=== PATIENT | female | born 1965 | race American Indian/Alaskan Native ===

== ENCOUNTER 2016-10-06 14:59 | Inpatient (IN) | payer BC ==
[2016-10-06] MEDS ORDERED: Sodium Chloride 0.9% 1,000 ML IV STA ×3 (15:31→19:23)
--- NOTE | 2016-10-06 15:42 | ED PDOC ---
Syncope/Near Syncope/Dizziness <Sana Mims - Last Filed: 10/06/16 18:12> Chief Complaint (Provider): Dizziness/Lightheaded History Per: Patient History/Exam Limitations: no limitations Onset/Duration Of Symptoms: Hrs (since 11:00) Current Symptoms Are (Timing): Still Present Additional Complaint(s): Luis Eduardo Vanessa is a 51 year old female with previous medical history of hypertension and pre-diabetes, who presents to the emergency department with a complaint of dizziness associated with room spins, lightheadedness, nausea, epigastric pain, and near syncope ongoing since 11:00 this morning. Denies any further medical complaints. She reports that she did take her hypertension medications this morning (verapamil and hctz) Admitted to drinking almost 2 bottles of wine last night, being on a diet for pre diabetes, having low blood pressure with systolic 70 this morning, and taking Radha-seltzer with no relief of symptoms. PMD: None provided <Carmita Padilla - Last Filed: 10/08/16 14:29> Time Seen by Provider: 10/06/16 15:17 Chief Complaint (Nursing): Dizziness/Lightheaded Past Medical History Vital Signs: Last Vital Signs Temp 98.7 F 10/06/16 15:06 Pulse 58 L 10/06/16 16:35 Resp 56 H 10/06/16 17:10 BP 90/51 L 10/06/16 17:10 Pulse Ox 100 10/06/16 17:12 <Sana Mims - Last Filed: 10/06/16 18:12> Reviewed: Historical Data, Nursing Documentation, Vital Signs Vital Signs: Last Vital Signs Temp 98.7 F 10/06/16 15:06 Pulse 66 10/06/16 15:06 Resp 20 10/06/16 15:06 BP 72/52 L 10/06/16 15:06 Pulse Ox 100 10/06/16 15:06 - Medical History PMH: Diabetes (prediabetic), HTN - Surgical History Surgical History: - Family History Family History: States: Diabetes, Hypertension - Social History Current smoker - smoking cessation education provided: No Alcohol: Social Drugs: Denies <Carmita Padilla - Last Filed: 10/08/16 14:29> - Home Medications Home Medications: Ambulatory Orders Medication Instructions Recorded Biotin [Meribin] 5 mg PO DAILY 10/06/16 Calcium Carbonate/Vitamin D3 1 each PO DAILY 10/06/16 [Os-Rolando 500-Vit D3 200 Caplet] Chromium/Herbal Complex No.238 2 each PO DAILY 10/06/16 [Green Tea Caplet] Hydrochlorothiazide [Microzide] 25 mg PO BID 10/06/16 Psyllium Husk [Metamucil] 0.4 gm PO DAILY 10/06/16 Verapamil HCl [Verapamil ER] 240 ng PO DAILY 10/06/16 - Allergies Allergies/Adverse Reactions: Allergies Allergy/AdvReac Type Severity Reaction Status Date / Time No Known Allergies Allergy Verified 10/06/16 15:03 Review of Systems ROS Statement: Except As Marked, All Systems Reviewed And Found Negative Gastrointestinal: Positive for: Nausea, Abdominal Pain (epigastric) Neurological: Positive for: Dizziness (vertiginous dizziness and lightheadedness ), Other (near syncope) <Carmiat Padilla - Last Filed: 10/08/16 14:29> Physical Exam - Reviewed Nursing Documentation Reviewed: Yes Vital Signs Reviewed: Yes - Physical Exam Appears: Positive for: Well (with tired appearance), Non-toxic, No Acute Distress Head Exam: Positive for: ATRAUMATIC, NORMAL INSPECTION, NORMOCEPHALIC Skin: Positive for: Normal Color, Warm, Dry. Negative for: Rash Eye Exam: Positive for: Normal appearance, EOMI, PERRL. Negative for: Nystagmus ENT: Positive for: Pharynx Is (clear), Other (dry mucous membranes) Neck: Positive for: Normal, Painless ROM, Supple. Negative for: Decreased ROM Cardiovascular/Chest: Positive for: Regular Rate, Rhythm. Negative for: Murmur Respiratory: Positive for: Normal Breath Sounds. Negative for: Crackles, Rales , Rhonchi, Wheezing Gastrointestinal/Abdominal: Positive for: Normal Exam, Bowel Sounds, Soft. Negative for: Tenderness, Guarding, Rebound Back: Positive for: Normal Inspection. Negative for: L CVA Tenderness, R CVA Tenderness Extremity: Positive for: Normal ROM. Negative for: Tenderness, Pedal Edema, Deformity Lymphatic: Positive for: Normal Exam. Negative for: Adenopathy Neurologic/Psych: Positive for: Alert, plan coordinator II-XII (intact), Oriented (x3). Negative for: Motor/Sensory Deficits <Carmita Padilla - Last Filed: 10/08/16 14:29> - Laboratory Results Result Diagrams: 10/06/16 16:01 10/06/16 16:01 <Sana Mims - Last Filed: 10/06/16 18:12> - Laboratory Results Result Diagrams: 10/08/16 04:20 10/08/16 04:20 - ECG O2 Sat by Pulse Oximetry: 100 (RA) Pulse Ox Interpretation: Normal - Radiology X-Ray: Interpreted by Me X-Ray Interpretation: No Acute Disease - Critical Care Total Time (In Min): 45 Documented Critical Care: Time excludes all time spent performint seperately billable procedures <Carmita Padilla - Last Filed: 10/08/16 14:29> Medical Decision Making Medical Decision Making: Initial Impression: Dizziness; weakness Differential diagnosis: Dehydration, electrolyte abnormality, gastritis, vertigo , hyperglycemia Initial Plan: * Type and screen * EKG * Labs * Antivert 25mg PO * NS 1,000 ml IV per 1,000 mls/hr * Zofran 8mg IV * conveyor monitor * Glucose, blood, POC --Positive Antione-Hallpike test (increases symptoms, no nystagmus) --Normal cerebellar function --Low BP with systolic pressure of 70 noted in ED --Bradycardia with junctional rhythm Labs c/w dehydration and hyperglycemia. Fluid hydration continued. Time: 1700 Pt attempted to use bathroom and had syncopal episode. When placed back on stretcher she reports feeling better. However, BP low. Additional fluid hydration ordered. ABG ordered. ABG demonstrated worsening hyperglycemia but no acidosis. Pt has had minimal PO intake for last 12 hours, including in ER, and has been receiving IVF. In the setting of persistent hypotension, bradycardia, hyperglycemia, and intact mental status, concern for verapamil toxicity (Pt took her 2x regular dose of verapamil 240mg ER and may have already been dehydrated and hypotensive at that time). Calcium ordered. JAQUELINE Giron for hospitalization. JAQUELINE [facility]. JAQUELINE patient and plan of care. JAQUELINE Veloz for ICU placement. Accession No. : [id number] Patient Name / ID : LEWIS HOFF / [id number] Exam Date : 10/06/2016 18:39:47 ( Approved ) Study Comment : Sex / Age : F / 51Y Creator : Elaina Rubio MD Dictator : Assistant Manager Pt : System Operation Superintendent : Elaina Rubio MD Approver2 : Report Date : 10/06/2016 19:33:00 My Comment : General acute hospital Division of Radiology [address] [place] [address] Tel. no. Patient Name: LUIS EDUARDO VANESSA Pt. Address: [address] [place] [address] Rec #: [id number] [place] [id number]: Randy ROCA, Carmita Cunningham Pt CELL Order Location: [facility] : 1965 Female Age: 51 Order #: [id number] Reason for exam: DIZZINESS HEADACHE CT Scan HEAD W/O CONTRAST Exam Date: 10/06/16 This imaging exam was performed at [facility] EXAM: CT Head Without Intravenous Contrast CLINICAL HISTORY: 51 years old, female; Signs and symptoms; Weakness, extremity and weakness, facial; Bilateral; Patient HX: Weakness dizziness. HTN; Additional info: Dizziness headache TECHNIQUE: Axial computed tomography images of the head/brain without intravenous contrast. This CT exam was performed using one or more of the following dose reduction techniques: automated exposure control, adjustment of the mA and/or kV according to patient size, and/or use of iterative reconstruction technique. Coronal and sagittal reformatted images were created and reviewed. EXAM DATE/TIME: 10/06/2016 5:12 PM COMPARISON: No relevant prior studies available. FINDINGS: LIMITATIONS: Mild streak/motion artifact. BRAIN: Mild, diffuse, age-related cortical atrophy. No significant acute abnormality identified. No acute hemorrhage seen within the brain. No acute extra-axial fluid collections visualized. No evidence of significant mass effect within the brain.No CT findings to suggest an acute, large territorial infarct, however, small or early acute infarcts may not be visible on CT. VENTRICLES: No evidence of significant hydrocephalus. BONES/JOINTS: No acute fractures or other acute bony abnormality noted. SOFT TISSUES: No acute abnormality of the visualized soft tissues is seen. SINUSES: Visualized paranasal sinuses appear clear. MASTOID AIR CELLS: Mastoid air cells appear clear. IMPRESSION: - No acute findings seen within the brain. - See above for remaining findings. Dictated By: Elaina Rubio MD Dictated Date/Time: 10/06/161932 Signed By: Elaina Rubio MD Date Signed: 1932 Transcribed By: BEVERLY Transcribe Date/Time : 10/06/161932 RM02/BRAYAN 830p Systolic BP stabilizing at 90s, but bradycardia persists, alternating between junctional rhythm and sinus. Continue close monitoring for recurrence of hypotension. Scribe Attestation: Documented by Radha Holley, acting as a scribe for Carmita Padilla MD. Provider Scribe Attestation: All medical record entries made by the Scribe were at my direction and personally dictated by me. I have reviewed the chart and agree that the record accurately reflects my personal performance of the history, physical exam, medical decision making, and the department course for this patient. I have also personally directed, reviewed, and agree with the discharge instructions and disposition. <Carmita Padilla - Last Filed: 10/08/16 14:29> Disposition <Sana Mims - Last Filed: 10/06/16 18:12> Counseled Patient/Family Regarding: Studies Performed, Diagnosis - Disposition Disposition Time: 17:00 - Pt Status Changed To: Hospital Disposition Of: Inpatient - Admit Certification Admit to Inpatient:: After my assessment, the patient will require hospitalization for at least two midnights. This is because of the severity of symptoms shown, intensity of services needed, and/or the medical risk in this patient being treated as an outpatient. - POA Present On Arrival: Falls Or Trauma <Carmita Padilla - Last Filed: 10/08/16 14:29> - Clinical Impression Clinical Impression: Bradycardia, Hypotension, Calcium channel josé miguel overdose - Disposition Condition: CRITICAL
[2016-10-06 16:19] LABS: ALB/GLOB RATIO 1.5 (1.0-2.1); ALBUMIN 4.3 g/dL (3.5-5.0); ALT/SGPT 75 U/L (9-52); AST/SGOT 97 U/L (14-36); BASO % 0.6 % (0.0-2.0); BLOOD UREA NITROGEN 24 mg/dl (7-17); CALCIUM 8.9 mg/dL (8.4-10.2); EOS % 0.7 % (0.0-4.0); GFR AFRICAN-AMERICAN > 60; GFR NON-AFRICAN AMERICAN 58; HEMOGLOBIN 11.5 g/dL (12.0-16.0); LIPASE 134 U/L (23-300); LYMPH # 1.9 K/uL (1.0-4.3); LYMPH % 31.4 % (20.0-40.0); MAGNESIUM 1.7 MG/DL (1.6-2.3); MEAN CELL VOLUME 83.9 fl (81.0-99.0); MEAN CORPUSCULAR HEMOGLOBIN 27.5 pg (27.0-31.0); MEAN CORPUSCULAR HGB CONC 32.7 g/dL (33.0-37.0); MEAN PLATELET VOLUME 10.2 fl (7.2-11.7); MONO # 0.4 K/uL (0.0-0.8); MONO % 6.5 % (0.0-10.0); NEUT # 3.7 K/uL (1.8-7.0); NEUT % 60.8 % (50.0-75.0); RBC 4.18 Mil/uL (3.80-5.20); RED CELL DISTRIBUTION WIDTH 15.5 % (11.5-14.5); WHITE BLOOD COUNT 6.2 K/uL (4.8-10.8)
[2016-10-06 16:53] LABS: INR 0.9 (0.9-1.2); PARTIAL THROMBOPLASTIN TIME 30.2 Seconds (25.6-37.1); PROTHROMBIN TIME 10.2 Seconds (9.8-13.1)
[2016-10-06] MEDS ORDERED: Insulin Regular 100 units/ml SC STA (17:06)
[2016-10-06] MEDS ORDERED: Insulin Regular 100 units/ml ONE (17:24)
[2016-10-06 17:25] LABS: ABG ALLEN TEST YES; ARTERIAL BLOOD GAS HCO3 24.7 mmol/L (21-28); ARTERIAL BLOOD GAS O2 SAT 99.7 % (95-98); ARTERIAL BLOOD GAS PCO2 26 mm/Hg (35-45); ARTERIAL BLOOD GAS PH 7.52 (7.35-7.45); ARTERIAL BLOOD GAS PO2 91 mm/Hg (80-100)
[2016-10-06] MEDS ORDERED: Calcium Gluconate 4.65 MEQ in Dextrose 5% In Water 100 ML IV ONE ×3 (18:09→19:54)
[2016-10-06] MEDS ORDERED: Insulin Regular 100 units/ml IVP STA (18:39)
[2016-10-06] MEDS: Calcium Gluconate 4.65 MEQ in Dextrose 5% In Water 100 ML IV ONE ×2 (18:55→19:05)
--- NOTE | 2016-10-06 19:33 | CT ---
EXAM: CT Head Without Intravenous Contrast CLINICAL HISTORY: 51 years old, female; Signs and symptoms; Weakness, extremity and weakness, facial; Bilateral; Patient HX: Weakness dizziness. HTN; Additional info: Dizziness headache TECHNIQUE: Axial computed tomography images of the head/brain without intravenous contrast. This CT exam was performed using one or more of the following dose reduction techniques: automated exposure control, adjustment of the mA and/or kV according to patient size, and/or use of iterative reconstruction technique. Coronal and sagittal reformatted images were created and reviewed. EXAM DATE/TIME: 10/06/2016 5:12 PM COMPARISON: No relevant prior studies available. FINDINGS: LIMITATIONS: Mild streak/motion artifact. BRAIN: Mild, diffuse, age-related cortical atrophy. No significant acute abnormality identified. No acute hemorrhage seen within the brain. No acute extra-axial fluid collections visualized. No evidence of significant mass effect within the brain.No CT findings to suggest an acute, large territorial infarct, however, small or early acute infarcts may not be visible on CT. VENTRICLES: No evidence of significant hydrocephalus. BONES/JOINTS: No acute fractures or other acute bony abnormality noted. SOFT TISSUES: No acute abnormality of the visualized soft tissues is seen. SINUSES: Visualized paranasal sinuses appear clear. MASTOID AIR CELLS: Mastoid air cells appear clear. IMPRESSION: - No acute findings seen within the brain. - See above for remaining findings.
[2016-10-06 21:01] VITALS: BMI 27.3
--- NOTE | 2016-10-06 21:05 | CP.PCM.CON ---
History of Present Illness - History of Present Illness History of Present Illness: CC: bradycardia, pre-syncope HPI: This is a 51 y/o female with 'pre-DM2' and HTN who comes in with lightheadedness and presyncope during the day today. She states that last night , she had 2 bottles of wine (which is unusual for her) but felt fine this AM aside from mild hangover symptoms. She had no n/v/d. In the morning, she ate normally, and took 2 of her verapamil ER pills (240 mg x 2) -- she often does this rather because she does not want to carry her medication around. During the day, she noted that she was getting LHness whenever she got up, and one time she felt like she would pass out, and her had to help her to bed. They then came to the hospital. Patient denies CP, SOB, or palpitations. States she has had a cardiac workup in the past year (?stress test) with her regular pilot control operator helper, and all results were normal. She states that she has been Rx'ed medications for her DM2 by her PCP, but does not want to take it. She notes she is active physically and never had symptoms like this before. Building Specialist: Anthony Gilliland ROS: 14 systems reviewed, negative other than HPI MHx: HTN, pre-DM2 SHx: C section, tonsil surgery Allergies: ?epidural, ?pain medications (unknown which ones) Medications: As per med rec Family Hx: HTN, DM2 in family Social Hx: Lives with family, no tobacco, intermittent but sometimes heavy EtOH use Past Patient History - Past Social History Alcohol: Social Drugs: Denies - CARDIAC Hx Hypertension: Yes - PSYCHIATRIC Hx Substance Use: No - SURGICAL HISTORY Hx Surgeries: Yes Hx Section: Yes Hx Tonsillectomy: Yes Meds Allergies/Adverse Reactions: Allergies Allergy/AdvReac Type Severity Reaction Status Date / Time No Known Allergies Allergy Verified 10/06/16 15:03 - Medications Medications: Current Medications Enoxaparin Sodium (Lovenox) 40 mg SC DAILY GO PRN Reason: Protocol Calcium Gluconate 4.65 meq/ (Dextrose) 110 mls @ 100 mls/hr IV ONCE ONE Stop: 10/06/16 20:59 Sodium Chloride (Sodium Chloride 0.9%) 1,000 mls @ 100 mls/hr IV .Q10H GO Stop: 10/07/16 16:59 Insulin Human Lispro (Humalog) 0 units SC ACHS GO PRN Reason: Protocol Physical Exam - Constitutional Appears: No Acute Distress - Head Exam Head Exam: ATRAUMATIC, NORMOCEPHALIC - Eye Exam Eye Exam: EOMI, PERRL - ENT Exam ENT Exam: Mucous Membranes Dry - Neck Exam Neck exam: Positive for: Full Rom - Respiratory Exam Respiratory Exam: Clear to Auscultation Bilateral, NORMAL BREATHING PATTERN - Cardiovascular Exam Cardiovascular Exam: Bradycardia, REGULAR RHYTHM - GI/Abdominal Exam GI & Abdominal Exam: Normal Bowel Sounds, Soft - Extremities Exam Extremities exam: Positive for: full ROM, normal inspection - Neurological Exam Neurological exam: Alert, CN II-XII Intact, Oriented x3 - Psychiatric Exam Psychiatric exam: Normal Affect, Normal Mood - Skin Skin Exam: Dry, Warm Results - Vital Signs Recent Vital Signs: Last Vital Signs Temp 98.7 F 10/06/16 15:06 Pulse 56 L 10/06/16 20:24 Resp 20 10/06/16 20:24 BP 98/50 L 10/06/16 20:24 Pulse Ox 100 10/06/16 20:18 - Labs Result Diagrams: 10/06/16 16:01 10/06/16 16:01 - EKG Data EKG Interpreted by: Myself - EKG Data EKG comments: Junctional rhythm on several EKGs, sometimes bradycardic into 50s Assessment & Plan (1) Bradycardia Assessment and Plan: 51 y/o female presenting with hypotension, bradycardia, and presyncope in the setting of possible CCB overdose and in setting of EtOH. -Admit to ICU -Repeat EKG in AM -Repeat labs in AM; repeat lactic acid; serial troponins -Echo ordered for tmrw -Cardiology consult ([place]) -Patient is getting IVF -Patient is receiving Ca++ -SSI and accuchecks for ser gluc control -Lovenox for DVT PPx Status: Acute (2) Calcium channel josé miguel overdose Status: Acute (3) Hypotension Status: Acute (4) DM2 (diabetes mellitus, type 2) Status: Acute (5) DVT prophylaxis Status: Acute
[2016-10-06] MEDS ORDERED: Oxycodone/Acetaminophen 5/325 mg Tab PO STA (22:25)
[2016-10-06] MEDS: Insulin Lispro (humaLOG) 100 Units/ml Inj SC SCH (22:30)
[2016-10-06] MEDS: Sodium Chloride 0.9% 1,000 ML IV SCH (22:33)
[2016-10-07 02:00] LABS: URINE BILIRUBIN NEGATIVE (NEGATIVE); URINE BLOOD NEGATIVE (NEGATIVE); URINE CLARITY SLIGHTY-CLOUDY (Clear); URINE COLOR YELLOW (YELLOW); URINE GLUCOSE (UA) >=500 mg/dL (Normal); URINE LEUKOCYTE ESTERASE NEG Leu/uL (Negative); URINE NITRATE NEGATIVE (NEGATIVE); URINE PROTEIN 100 mg/dL (NEGATIVE)
[2016-10-07 06:00] LABS: BARBITURATES, UR NEGATIVE (NEGATIVE)
[2016-10-07 06:01] LABS: BENZODIAZEPINES, UR NEGATIVE (NEGATIVE)
[2016-10-07 06:03] LABS: OPIATES, UR NEGATIVE (NEGATIVE)
[2016-10-07 06:04] LABS: PHENCYCLIDINE, UR NEGATIVE (NEGATIVE)
[2016-10-07 06:46] LABS: HEMOGLOBIN 10.4 g/dL (12.0-16.0); MEAN CORPUSCULAR HEMOGLOBIN 27.7 pg (27.0-31.0); RBC 3.74 Mil/uL (3.80-5.20); RED CELL DISTRIBUTION WIDTH 15.7 % (11.5-14.5); WHITE BLOOD COUNT 6.4 K/uL (4.8-10.8)
[2016-10-07 06:50] LABS: BLOOD UREA NITROGEN 15 mg/dl (7-17); CALCIUM 8.8 mg/dL (8.4-10.2); GFR AFRICAN-AMERICAN > 60; GFR NON-AFRICAN AMERICAN > 60
[2016-10-07] MEDS: Insulin Lispro (humaLOG) 100 Units/ml Inj SC SCH ×4 (07:30→22:15)
[2016-10-07] MEDS: Sodium Chloride 0.9% 1,000 ML IV SCH (08:00)
[2016-10-07] MEDS: Enoxaparin 40 mg Syringe SC SCH (09:46)
--- NOTE | 2016-10-07 10:19 | CARD ---
APPROVED REPORT EKG Measurement Heart [id number] <Conclusion> Junctional rhythm Abnormal QRS-T angle, consider primary T wave abnormality Prolonged QT Abnormal ECG
--- NOTE | 2016-10-07 10:45 | CARD ---
APPROVED REPORT EKG Measurement Heart [id number] <Conclusion> Junctional rhythm Nonspecific T wave abnormality Abnormal ECG
--- NOTE | 2016-10-07 10:47 | CARD ---
APPROVED REPORT EKG Measurement Heart [id number] <Conclusion> Normal sinus rhythm Nonspecific T wave abnormality Abnormal ECG
--- NOTE | 2016-10-07 10:58 | RAD ---
HISTORY: syncope COMPARISON: No prior. FINDINGS: LUNGS: Suspect minor bibasilar atelectasis PLEURA: No significant pleural effusion identified, no pneumothorax apparent. CARDIOVASCULAR: Normal. OSSEOUS STRUCTURES: No significant abnormalities. VISUALIZED UPPER ABDOMEN: Normal. OTHER FINDINGS: None. IMPRESSION: Suspect minor bibasilar atelectasis
[2016-10-07] MEDS: Oxycodone/Acetaminophen 5/325 mg Tab PO PRN ×2 (12:06→21:04)
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
[2016-10-07] MEDS ORDERED: Verapamil 240 mg ER Tab PO SCH (18:30)
[2016-10-08 05:18] LABS: HEMOGLOBIN 10.5 g/dL (12.0-16.0); MEAN CELL VOLUME 84.6 fl (81.0-99.0); MEAN CORPUSCULAR HEMOGLOBIN 27.4 pg (27.0-31.0); MEAN CORPUSCULAR HGB CONC 32.4 g/dL (33.0-37.0); RBC 3.83 Mil/uL (3.80-5.20); RED CELL DISTRIBUTION WIDTH 15.7 % (11.5-14.5); WHITE BLOOD COUNT 4.6 K/uL (4.8-10.8)
[2016-10-08 05:29] LABS: ALBUMIN 3.5 g/dL (3.5-5.0)
[2016-10-08] MEDS: Oxycodone/Acetaminophen 5/325 mg Tab PO PRN (05:29)
[2016-10-08 05:32] LABS: ALB/GLOB RATIO 1.2 (1.0-2.1); AST/SGOT 140 U/L (14-36); BLOOD UREA NITROGEN 13 mg/dl (7-17); GFR AFRICAN-AMERICAN > 60; GFR NON-AFRICAN AMERICAN > 60
[2016-10-08 05:33] LABS: ALT/SGPT 195 U/L (9-52); CALCIUM 8.7 mg/dL (8.4-10.2)
[2016-10-08 08:12] VITALS: BP 154/80; PULSE 78; RESP 18; TEMP 98
[2016-10-08] MEDS: Enoxaparin 40 mg Syringe SC SCH (08:39)
[2016-10-08 14:30] VITALS: O2SAT 100
--- NOTE | 2016-10-22 11:46 | HP ---
Mack Burr MD History and Physical Dictation Chief complaint: suffered dizziness, almost passed out. History of Present Illness: 51yr female history of diabetes, hypertension. He was feeling very dizzy and almost passed out, brought to the emergency room and admitted for further management. Review of Systems: Daily animal care assistant for dizziness and almost passing out syncope , loss of consciousness, chest pain, shortness of breath, nausea, diarrhea, vomiting. Personal History. Patient is a non smoker. Patient is on multiple medications.__ . Patient is not allergic to any medication. Family History: non contributory Physical Examination: GENERAL : VITAL SIGNS : . Temperature: . Pulse: . Respirations: . Blood Pressure: HEENT exam: HEART: LUNGS are good. ABDOMEN: Soft non tender. Extension. Days after exam. No edema , no no tenderness. next exam. Central Nervous System: Diagnostic data available. Diagnostic data reviewed. Impression: . Patient was admitted to ICU PLan : As ordered Leno Giron MDD
== END 2016-10-08 09:52 | disposition left against medical advice (07) | DRG 918 ==
LOC: H.ER 14:59 → H.ERHOLD 17:20 → H.ICU/CCU 20:59 → OBSVTOIN 10-07 13:34
PROVIDERS: ADMIT Internal Medicine; ATTEND Internal Medicine
DX: T46.1X1A Poisoning by calcium-channel blockers, accidental (unintentional), initial encounter (principal); I95.9 Hypotension, unspecified; I10 Essential (primary) hypertension; R00.1 Bradycardia, unspecified; E86.0 Dehydration; R42 Dizziness and giddiness; R73.03 Prediabetes; R73.9 Hyperglycemia, unspecified; R55 Syncope and collapse